=== PATIENT | male | born 1985 | race Caucasian/White ===

== ENCOUNTER 2025-04-17 18:54 | Emergency (ER) | payer OTHER, SELFPAY ==
[2025-04-17 18:59] VITALS: BP 148/87
[2025-04-17 19:26] LABS: Hematocrit 45.0 % (39.0-52.0); Hemoglobin 15.2 g/dL (13.0-18.0); Mean Corp Hgb Conc. 33.8 g/dL (33.0-37.0); Mean Corpuscular Volume 85.7 fL (80.0-94.0); Nucleated Red Blood Cells % 0 % (-); Platelet Count 217 10^3/uL (130-400); Red Cell Dist. Width 12.9 % (11.5-14.5)
[2025-04-17 19:53] LABS: COVID-19 Antigen Negative (Negative)
[2025-04-17 19:54] LABS: Troponin I < 0.012 ng/ml
[2025-04-17 20:00] LABS: ALT (SGPT) 39 U/L (0-50); AST (SGOT) 26 U/L (17-59); Albumin 4.5 g/dl (3.5-5.0); Alkaline Phosphatase 75 U/L (38-126); Blood Urea Nitrogen 14 mg/dl (9-20); Calcium 9.6 mg/dl (8.4-10.2); Carbon Dioxide 31 mmol/L (22-30); Chloride 102 mmol/L (98-107); Glucose 103 mg/dl (70-99); Potassium 4.2 mmol/L (3.5-5.1); Sodium 139 mmol/L (135-145); Total Protein 7.5 g/dl (6.3-8.2); eGFR > 60.00
--- NOTE | 2025-04-17 20:56 | ED.GENMED ---
History of Present Illness
<Renetta Garcia PA-C - Last Filed: 04/18/25 04:10>
General
Chief Complaint: Breathing Problem
Source: patient
Exam Limitations: none
Time Seen by Provider: 04/17/25 20:55
Nursing documentation reviewed up to this point in time: agreed with
History of Present Illness
History of Present Illness:
Note:
CHIEF COMPLAINT(S)
Mouth sores and shortness of breath.
HISTORY OF PRESENT ILLNESS
The patient is a 39-year-old male with no past medical history who presents emergency department today with concerns of shortness of breath, poor appetite, and soreness in his mouth and throat, initially onset five days ago. Over the past five days,
he has struggled with oral intake, having had only a couple of bites of food and an apple, which he coughed up due to the pain. He managed to consume and retain a protein shake. The mouth sores were followed by fever-like symptoms, with feelings of
being hot and cold. Although his temperature was checked to be around 99�F, he experienced chills and sweats. There were no rashes or lesions on his hands or feet.
Since yesterday, he has experienced episodes of dry heaving due to an empty stomach, with occasional bile emesis. He also complains of weakness and shortness of breath upon mild exertion, such as walking. His exertional dyspnea is accompanied by a
sensation of a racing heart. He does not report significant chest pain. He does have a family history of heart disease. He does vape daily. He does not smoke cigarettes. He was seen by urgent care recently and was diagnosed with a ear infection
and was started on amoxicillin.
CONTRIBUTING FACTORS
The patient experienced the worsening of symptoms after attempting physical activities, waking during the night with symptoms. 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
zlai-yyht-nby-mouth disease, but disinfected thoroughly. He tried self-care with high-dose vitamin B12 and multivitamins, which offered temporary improvement.
PAST MEDICAL AND SURGICAL HISTORY
History of a left ear infection.
PHYSICAL EXAM
General: Patient is well appearing and in no acute distress; non-toxic
Skin: Warm and dry, no rashes or lesions
Head: Normocephalic, atraumatic
Eyes: Sclera non-icteric. EOMs intact.
Mouth: Uvula midline, mild pharyngeal erythema noted with vesicles on erythematous base noted to posterior pharynx and tongue.
Cardiac: Regular rate and rhythm, no murmurs, no tenderness palpation of external chest wall
Peripheral Vascular: No lower extremity swelling or edema
Pulm: Normal respiratory effort, no wheezes, rales, rhonchi
Abdomen: No abdominal tenderness to palpation
Neuro: CN II-XII intact, no focal neurologic deficits.
Psychiatric: Appropriate mood and affect.
SOCIAL DETERMINANTS OF HEALTH
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
PLAN
- Prescribe Magic Mouthwash to relieve oral pain and inflammation.
- Await results and interpretation of a chest x-ray to rule out pneumonia.
- Consider viral etiology for symptoms; educate on hand hygiene and potential viral exposure.
- Recommend cautious activity level and gradual return to regular activities as tolerated.
DIFFERENTIAL DIAGNOSIS
The Differential Diagnosis includes, in no particular order and is not limited to:
- Herpangina
- Viral pharyngitis
- Viral pneumonia
- Dehydration
- Acute viral stomatitis
- Systemic viral syndrome
- Psychogenic hyperventilation
- Exertional dyspnea
- Acute viral upper respiratory tract infection
- Mononucleosis
CHART REVIEW
No prior ER physician documentation to review, no external medical summary to review, reviewed physician line, no prior EKGs for review EKG today shows left axis deviation unknown age discussed follow-up with primary
SUMMARY OF ENCOUNTER
The patient was seen for evaluation of mouth sores and shortness of breath. He presented with complaints suggestive of a viral syndrome, having tried multiple home remedies with variable success. After a thorough history and examination, and given
current presentation, herpangina is suspected, although confirmation via imaging and further lab work is pending. The patient is to be observed with treatment aimed at symptom relief.
MEDICATION RECONCILIATION
- Prescribe Magic Mouthwash (contains diphenhydramine and lidocaine) to alleviate oral pain.
MEDICAL DECISION MAKING
- Number and Complexity of Problems Addressed: Chronic conditions affecting care. Differential diagnosis includes herpangina, viral pharyngitis, and viral pneumonia among others.
- Data:
Category 1:
EKG reviewed and interpreted as normal. Laboratory blood work showed no significant infections and normal cardiac enzymes. Chest x-ray ordered to rule out pneumonia.
Category 2:
Clinical information corroborated by patients family member present during visit.
Category 3:
Awaiting interpretation of chest x-ray to finalize management plan regarding potential pneumonia risk.
- Risk:
Prescription medication was prescribed - Magic Mouthwash for symptom relief. Considered outpatient management with follow-up due to viral etiology without acute concerns on current examination. Relevant social determinants are considered in context
due to potential viral exposure at the primary office work setting.
39-year-old male presents emergency department today with concerns of intermittent fevers and chills as well as shortness of breath. He is also trouble swallowing poor appetite. On physical exam he is well-appearing no acute distress. He has
vesicles on erythematous base noted to the posterior pharynx and scattered on the tongue. This is consistent with herpangina/viral gingivostomatitis. Patient symptoms improved significantly with Magic mouthwash. He is able to talk without any
pain. Lungs are clear patient went for x-ray which shows no evidence of pneumonia no acute cardiopulmonary abnormality. Suspect shortness of breath related to bronchitis or related to current viral syndrome. Patient did go for EKG and troponin
which were undetectable. Patient has no chest pain at this time shortness of breath has been ongoing for multiple days. Discussed follow-up with primary. Did consider PE however patient PERC score not concerning. Discussed close follow-up and
strict return precautions. Patient stable for discharge.
DIAGNOSIS
- Herpangina (B08.5)
- Viral Upper Respiratory Infection (J06.9)
- Viral Stomatitis (B00.89)
Review of Systems
<Renetta Garcia PA-C - Last Filed: 04/18/25 04:10>
Review of Systems
All Other Systems: ROS reviewed and negative except as documented in HPI and ROS
Phy Exam
<Renetta Garcia PA-C - Last Filed: 04/18/25 04:10>
Physical Exam
Physical Exam:
see hpi
Scores
<Renetta Garcia PA-C - Last Filed: 04/18/25 04:10>
PERC Rule Criteria
PERC Score: 0
PE can be excluded by PERC: Yes
<Jamey Cuellar DO - Last Filed: 04/17/25 22:20>
PERC Rule Criteria
Age <50 years: Yes
HR <100 bpm: Yes
Room air oxygen sat >94%: Yes
History of DVT or PE: No
Recent trauma or surgery: No
Hemoptysis: No
Exogenous estrogen: No
Clinical signs suggestive of DVT: No
: No
Considered low risk for PE: Yes
PERC Score: 0
PE can be excluded by PERC: Yes
Course
<Renetta Garcia PA-C - Last Filed: 04/18/25 04:10>
Orders/Labs/Results
Orders:
Orders
04/17/25 19:04
Electrocardiogram (*1) Urgent
Reason for Study: Shortness of Breath
EKG- Treatment ONCE
04/17/25 19:15
COVID-19 Antigen Urgent
Source: Nasal Swab
Complete Blood Count/With Diff Urgent
Comprehensive Metabolic Panel Urgent
Troponin I Urgent
Influenza A+B Rapid Molecular Urgent
SONALI Source: Nasal Swab
Specimen Description:
04/17/25 21:01
CXR2 [CR Chest - 2 Views ] Urgent
Comment:
Reason For Exam: shortness of breath
04/17/25 22:00
Lidocaine Visc/Maalox/Benadryl [Magic or Miracle Mouthwash] 10 ml PO R ONCE ONE
Abnormal Lab Results
04/17/25
19:15
Absolute Monos (auto) 0.8 H 10^3/uL
(0.1-0.6)
Monocytes % 10.7 H %
(1.7-9.3)
Carbon Dioxide 31 H mmol/L
(22-30)
Glucose 103 H mg/dl
(70-99)
04/17/25 19:15
04/17/25 19:15
Vital Signs
Initial and Last Documented VS:
Initial Vital Signs
Temp Pulse Resp BP Pulse Ox
98.6 F 89 18 148/87 97
04/17/25 18:59 04/17/25 18:59 04/17/25 18:59 04/17/25 18:59 04/17/25 18:59
Last Documented Vital Signs
Temp Pulse Resp BP Pulse Ox
98.6 F 78 18 174/94 98
04/17/25 18:59 04/17/25 22:00 04/17/25 22:00 04/17/25 23:00 04/17/25 23:00
Benlt;Jamey Cuellar DO - Last Filed: 04/17/25 22:20>
Orders/Labs/Results
Orders:
Orders
04/17/25 19:04
Electrocardiogram (*1) Urgent
Reason for Study: Shortness of Breath
EKG- Treatment ONCE
04/17/25 19:15
COVID-19 Antigen Urgent
Source: Nasal Swab
Complete Blood Count/With Diff Urgent
Comprehensive Metabolic Panel Urgent
Troponin I Urgent
Influenza A+B Rapid Molecular Urgent
SONALI Source: Nasal Swab
Specimen Description:
04/17/25 21:01
CXR2 [CR Chest - 2 Views ] Urgent
Comment:
Reason For Exam: shortness of breath
04/17/25 22:00
Lidocaine Visc/Maalox/Benadryl [Magic or Miracle Mouthwash] 10 ml PO R ONCE ONE
Abnormal Lab Results
04/17/25
19:15
Absolute Monos (auto) 0.8 H 10^3/uL
(0.1-0.6)
Monocytes % 10.7 H %
(1.7-9.3)
Carbon Dioxide 31 H mmol/L
(22-30)
Glucose 103 H mg/dl
(70-99)
04/17/25 19:15
04/17/25 19:15
Vital Signs
Initial and Last Documented VS:
Initial Vital Signs
Temp Pulse Resp BP Pulse Ox
98.6 F 89 18 148/87 97
04/17/25 18:59 04/17/25 18:59 04/17/25 18:59 04/17/25 18:59 04/17/25 18:59
Last Documented Vital Signs
Temp Pulse Resp BP Pulse Ox
98.6 F 78 18 174/94 98
04/17/25 18:59 04/17/25 22:00 04/17/25 22:00 04/17/25 23:00 04/17/25 23:00
erin;Renetta Garcia PA-C - Last Filed: 04/18/25 04:10>
*Pulse Oximetry
SaO2: 97
Oxygen Mode of Delivery: Room air
Patient hypoxic: no
*Critical Care Note
Total Time (30-74mins, 75-104mins- exclusive of procedures): Not Applicable
ED Attending Note
<Renetta Garcia PA-C - Last Filed: 04/18/25 04:10>
-
Portions of this chart may have been created with voice recognition software.� Occasional wrong word or��sound alike� substitutions may have occurred due to the inherent limitations of voice recognition software.
Discharge Plan
Departure
Patient Disposition: Home (Routine Discharge)
Date of Disposition: 04/17/25
Time of Disposition: 22:51
Patient with high blood pressure during this ER visit?: Yes
Condition: Good
Discharge Problem:
Acute herpangina, Acute viral syndrome
Instructions: Hand, foot, and mouth disease and herpangina, Cough, runny nose, and colds, BLOOD PRESSURE
Prescriptions:
No Action
BuSpar
Referrals:
Gus Rinaldi MD [Active, Otology] - Call in 1-3 days for appt
UNKNOWN - PT DOES,NOT KNOW [Family Provider]
Stand Alone Forms: Return to Work
Activity Restrictions/Additional Instructions:
You can swish and spit 10 mL of the Magic mouthwash every 4-6 hours as needed for mouth and throat pain. You can also pain on with a sponge the solution in the larger lesions. Continue to monitor your symptoms. Please follow-up with your primary
care provider in 1 week for reassessment. Should the lesions in your mouth persist, I recommend following up with your PCP.
PLEASE RETURN TO THE ER SHOULD YOU DEVELOP DIFFICULTY BREATHING, PERSISTENT SHORTNESS OF BREATH, CHEST PAIN, PALPITATIONS, LIGHTHEADEDNESS, DIZZINESS, OR ANY OTHER SIGNS OR SYMPTOMS CONCERNING TO YOU.
Interventions
Interventions:
*Risk Screen - Suicide Last Done: 04/17/25 19:02
*General Assessment Last Done: 04/17/25 19:02
*Neglect/Abuse Screening Last Done: 04/17/25 19:02
*ED- Fall Risk Assessment Last Done: 04/17/25 21:05
*ED COVID-19 Vaccine History Last Done: 04/17/25 21:05
*Nursing Disposition Last Done: 04/17/25 23:28
ED- Cardiac Assessment Last Done: 04/17/25 21:06
ED- Pulmonary Assessment Last Done: 04/17/25 21:06
Discharge Date and Time
Discharge Date/Time: 04/17/25 23:29
Print Language: BRUNEIAN
[2025-04-17 20:58] VITALS: BMI 53.7
[2025-04-17] MEDS: MAGIC OR MIRACLE MOUTHWASH 10 ML PO (21:50)
[2025-04-17 22:00] VITALS: BP 138/80
[2025-04-17 23:00] VITALS: BP 174/94
== END 2025-04-17 23:29 | disposition home or self-care (01) ==
LOC: EMR 18:54
PROVIDERS: Emergency Medicine; EMERGENCY PHYSICIAN Emergency Medicine
DX: B08.5 Enteroviral vesicular pharyngitis (principal); B34.9 Viral infection, unspecified; K12.1 Other forms of stomatitis; F17.290 Nicotine dependence, other tobacco product, uncomplicated; Z11.52 Encounter for screening for COVID-19
CPT/HCPCS: 99285; 71046; 80053; 84484; 85025; 87502; 87811; 93005